=== PATIENT | female | born 1950 | race Caucasian/White ===

== ENCOUNTER → 2020-11-03 | Outpatient (CLI) | payer OTHER ==
[~2020-11-03] MED LIST: COQ-10100 MG PO; DITROPAN 5 MG TA5 MG PO; DOCUSATE SODIU250 MG PO; ESTRIOL VG; FISH OIL + D31 EACH PO; GINGER ROOT PO; HYDROCODONE-AC1 EACH PO; IBUPROFEN600 MG PO; LIPITOR TAB 1010 MG PO; LIPITOR10 MG PO; PEPCID40 MG PO; PHENERGAN 25 MG25 M1 PO; PHENERGAN12.5 MG PR; PROBIOTIC1 EAC1 PO; PROTONIX40 MG PO; PROZAC10 MG PO; VITAMIN E400 UNI3 PO; ZOFRAN ODT 4 MG4 MG SL; ZYRTEC10 MG PO; [UNRECOGNIZED DRUG - OTHER] PO
[2020-11-03 09:00] LABS: HEMOGLOBIN 13.5 gm/dl (12.3-15.3); RED BLOOD COUNT 4.34 M/UL (4.00-5.10); WHITE BLOOD COUNT 5.8 K/UL (4.5-11.0)
== END ==
LOC: OPSV2 08:16
PROVIDERS: Obstetrics & Gynecology
DX: Z01.812 Encounter for preprocedural laboratory examination (principal); N81.9 Female genital prolapse, unspecified
CPT/HCPCS: 36415; 81001; 85025

== ENCOUNTER 2020-11-17 06:21 | Day surgery (SDC) | payer OTHER ==
[~2020-11-17] VITALS: Ht 165.1 cm; Wt 64.9 kg
[~2020-11-17 06:21] MED LIST changes: -DITROPAN 5 MG TA5 MG PO; -DOCUSATE SODIU250 MG PO; -HYDROCODONE-AC1 EACH PO; -IBUPROFEN600 MG PO
[2020-11-17] MEDS ORDERED: DOCUSATE SODIU250 MG PO (08:01)
[2020-11-17] MEDS ORDERED: HYDROCODONE-AC1 EACH PO (08:01)
[2020-11-17] MEDS ORDERED: IBUPROFEN600 MG PO (08:01)
[2020-11-17] MEDS ORDERED: DITROPAN 5 MG TA5 MG PO (08:01)
--- NOTE | 2020-11-18 10:47 | NUR ---
KEEP FOLLOW UP APPOINTMENT MEDS SENT TO PHARMACY. FIRST APPOINTMENT TELEHEALTH, SECOND IN OFFICE. VERBALIZED UNDERSTANDING. DEE BALTAZAR R.N.
== END 2020-11-18 11:55 | disposition home or self-care (01) ==
LOC: OR 06:21 → MED SURG 4 10:47 → OR 11-18 11:55
PROVIDERS: Obstetrics & Gynecology
PROC: 0UT24ZZ Resection of Bilateral Ovaries, Percutaneous Endoscopic Approach (ICD-10-PCS; 2020-11-17)
PROC: 0UT74ZZ Resection of Bilateral Fallopian Tubes, Percutaneous Endoscopic Approach (ICD-10-PCS; 2020-11-17)
PROC: 0USG7ZZ Reposition Vagina, Via Natural or Artificial Opening (ICD-10-PCS; 2020-11-17)
PROC: 0UT94ZZ Resection of Uterus, Percutaneous Endoscopic Approach (ICD-10-PCS; principal; 2020-11-17 07:30)
DX: N81.4 Uterovaginal prolapse, unspecified (principal); N80.0 Endometriosis of uterus; N83.332 Acquired atrophy of left ovary and fallopian tube; N83.331 Acquired atrophy of right ovary and fallopian tube; N39.46 Mixed incontinence; N88.8 Other specified noninflammatory disorders of cervix uteri; K66.0 Peritoneal adhesions (postprocedural) (postinfection); K21.9 Gastro-esophageal reflux disease without esophagitis; E78.5 Hyperlipidemia, unspecified; Z88.8 Allergy status to other drugs, medicaments and biological substances; Z79.899 Other long term (current) drug therapy; Z88.5 Allergy status to narcotic agent; Z88.1 Allergy status to other antibiotic agents
CPT/HCPCS: C1769; J0690; J1100; J2001; J2250; J2405; J2704; J2710; J3010; J7050; J7120

== ENCOUNTER → 2021-08-15 | Outpatient (CLI) | payer OTHER ==
[~2021-08-15] MED LIST changes: +DITROPAN 5 MG TA5 MG PO; +DOCUSATE SODIU250 MG PO; +HYDROCODONE-AC1 EACH PO; +IBUPROFEN600 MG PO
== END ==
LOC: OPSV 07:50
DX: N39.0 Urinary tract infection, site not specified (principal)
CPT/HCPCS: 96372; J0696

== ENCOUNTER → 2021-08-16 | Outpatient (CLI) | payer OTHER | LOC: OPSV 07:11 | DX: N39.0 Urinary tract infection, site not specified (principal) | CPT/HCPCS: 96372; J0696 ==